=== PATIENT | female | born 1995 | race Caucasian/White ===

== ENCOUNTER 2017-10-31 15:57 | Emergency (ER) | payer OTHER ==
[~2017-10-31] VITALS: Ht 175.3 cm; Wt 54.5 kg
[2017-10-31] MEDS ORDERED: ALBU8HFA IH (16:12)
[2017-10-31] MEDS ORDERED: IBUPROFEN 600 MG TABLET PO ONE (17:30)
[2017-10-31 19:15] VITALS: BP 115/67
== END 2017-10-31 19:40 | disposition home or self-care (01) ==
LOC: EMS 16:02
DX: S93.401A Sprain of unspecified ligament of right ankle, initial encounter (principal); S93.601A Unspecified sprain of right foot, initial encounter; S80.212A Abrasion, left knee, initial encounter; S80.211A Abrasion, right knee, initial encounter; S20.412A Abrasion of left back wall of thorax, initial encounter; J45.909 Unspecified asthma, uncomplicated; Z88.8 Allergy status to other drugs, medicaments and biological substances; V00.131A Fall from skateboard, initial encounter; Y93.51 Activity, roller skating (inline) and skateboarding; Y92.89 Other specified places as the place of occurrence of the external cause; Y99.8 Other external cause status
CPT/HCPCS: 99284